=== PATIENT | female | born 1955 | race Caucasian/White ===

== ENCOUNTER → 2020-02-20 | Day surgery (SDC) | payer BC, OTHER ==
[2020-02-16 10:15] LABS: BASOPHILS % 0.4 % (0.0-1.0); EOSINOPHILS % 0.8 % (0.0-6.0); HEMATOCRIT 42.2 % (34.2-44.1); LYMPHOCYTES # (AUTO) 1.2 (1.0-3.2); LYMPHOCYTES % 24.6 % (18.0-39.1); MEAN CORPUSCULAR HEMOGLOBIN 26.8 pg (28-32); MEAN CORPUSCULAR HGB CONC 30.8 g/dL (31-35); MONOCYTES # (AUTO) 0.5 (0.2-0.8); MONOCYTES % 10.7 % (4.4-11.3); NEUTROPHILS % 63.3 % (38.7-80.0); PLATELET COUNT 401 x10e3/uL (140-360); RED BLOOD COUNT 4.85 x10e6/uL (3.6-5.1); RED CELL DISTRIBUTION WIDTH 16.4 % (11.7-14.4)
[~2020-02-20] MED LIST: CEFAZOLIN SOD 1 GM/NS 50ML 50 ML IV ONE; DEXAMETHASONE SOD PHOS INJ 4 MG/ML VIAL ONE; EFFEXOR XR150 MG PO; FENTANYL CITRATE/PF 100MCG/2 ML INJ ONE; GLYCOPYRROLATE INJ 0.2 MG/ML VIAL ONE; LIDOCAINE 2%/ EPINEPHRINE 20ML MDV ONE; LIDOCAINE HCL 2% LOCAL INJ 5 ML SDV VIAL INJ ONE; MIDAZOLAM HCL 2 MG/2 ML VIAL ONE; MUPIROCIN 2% OINT 22 GM TUBE ONE; NEOSTIGMINE 1 MG/ML 10ML VIAL ONE; ONDANSETRON HCL INJ 2MG/ML 2ML 2 MG/ML VIAL ONE; PROPOFOL IV EMULSION 10 MG/ML 20 ML VIAL ONE; QUINAPRIL HCL20 MG PO; SEVOFLURANE INHAL SOLN 250 ML PEN BTL ONE; VERAPAMIL ER120 MG PO
--- NOTE | 2020-02-20 07:15 | NUR ---
SPIRITUAL CARE - Pre-Surgery Assessment: Pt in bed. Pt reported supportive attention from family and friends. Intervention: Sales Utility Representative provided pastoral presence, hospitality, and sympathetic listening. Acquainted pt with availability of upper caser while hospitalized. Outcome: Pt expressed appreciation for visit. No need for follow up indicated at this time. MARTHA Vora Spiritual Care Department O: [phone]
[2020-02-20 11:45] VITALS: BP 110/67
--- NOTE | 2020-02-20 14:06 | Operative Report ---
DATE OF PROCEDURE: 02/20/2020 SURGEON: Juan Diego Abdullahi MD PREOPERATIVE DIAGNOSES: 1. Basal cell carcinoma, forehead, status post Mohs micrographic surgery. 2. Platysmal banding and scarring of neck. POSTOPERATIVE DIAGNOSES: 1. Basal cell carcinoma, forehead, status post Mohs micrographic surgery. 2. Platysmal banding and scarring of neck. PROCEDURES: 1. Advancement flap closure 25 cm2, forehead lesion. 2. 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 ANESTHESIA: General. HISTORY: The patient is a 64-year-old female, who yesterday underwent Mohs micrographic surgery for removal of a basal cell carcinoma in the left temporal forehead region. The resultant defect measures approximately 4 cm x 2.5 cm and is full-thickness down to the frontalis muscle. The reconstructive options were discussed with the patient and her , and they have opted for advancement flap closure from a pedicle based laterally in the temporal region. The patient has had 2 previous facial rhytidectomy, which shows left severe scarring in the cervical region with platysmal banding. Attention to the correction of this condition will be performed as well. The risks, benefits, and alternatives of treatment were discussed with the patient. She is prepared to undergo the procedure as outlined. PROCEDURE IN DETAIL: The patient was marked preoperatively in the holding area. She was brought to the operating theater and after the induction of adequate general anesthesia, she was prepped and draped in a supine position and a time-out was performed. The defect in the left forehead has measured out. The skin edges are excised of all of their beveled edges and devitalized tissue and the wound bed was cleansed of all the Mohs procedure remnants. At this point, 2 horizontal parallel lines are drawn out from the defect to the lateral temporal area. The flap was then infiltrated with 1% Xylocaine with epinephrine. The incisions were made through the skin and subcutaneous tissue. Bleeding was controlled with using electrocautery. The flap was then elevated in the deep subcutaneous plane leaving the muscle in situ. The flap was dissected laterally until the flap was able to be advanced and cover the defect without tension. The resultant dimensions of the flap were now 6 cm x 5 cm for a total of 30 cm2. The flap was then advanced medially until the medial border of the flap meets the defect and then several nolan 5-0 nylon horizontal mattress sutures were placed. With the flap advanced, the redundant skin and subcutaneous tissue inferiorly and superiorly are sharply excised, so that the flap correctly fills the defect without any extraneous tissue. The remainder of the flap was then inset with 5-0 nylon sutures in an interrupted horizontal mattress fashion. At the completion of the procedure, the flap was well vascularized and incision was hemostatic. Attention was then turned to the neck. The chin was extended and the areas of the bands that were marked out preoperatively are infiltrated with 1% Xylocaine with epinephrine. The skin was then incised through the skin and subcutaneous tissue, and the skin bands were then excised. The skin was then undermined widely. There was a paucity of subcutaneous fat and the dermis of the skin was directly adhered to the platysmal muscle. This was released allowing the skin to expand naturally. The platysmal band that was marked out preoperatively was identified and was undermined using electrocautery. The band was then imbricated with 4-0 Monocryl suture in an interrupted buried fashion. At this point, the wounds were irrigated and the skin was then closed with 5-0 nylon in an interrupted horizontal mattress fashion. Bactroban ointment and Xeroform gauze were placed on all the incisions. Sterile dressings were applied. The estimated blood loss of procedure was approximately 15 to 20 mL. The patient was returned to recovery room in satisfactory condition and discharged with a postoperative instruction sheet as well as a followup appointment. MD TYLER Thornton/HUSAM /[id number]
== END | disposition home or self-care (01) ==
LOC: OR 06:05
PROVIDERS: ATTEND Plastic Surgery
DX: Z48.3 Aftercare following surgery for neoplasm (principal); Z85.828 Personal history of other malignant neoplasm of skin; L90.5 Scar conditions and fibrosis of skin; I10 Essential (primary) hypertension; E66.9 Obesity, unspecified; Z01.810 Encounter for preprocedural cardiovascular examination; Z01.812 Encounter for preprocedural laboratory examination; Z20.828 Contact with and (suspected) exposure to other viral communicable diseases; Z91.048 Other nonmedicinal substance allergy status
CPT/HCPCS: 14041; 15825; 36415; 85025; 93005; J0690; J1100; J2001 ×2; J2250; J2405; J2704; J2710; J3010; U0002